=== PATIENT | female | born 1950 | race Caucasian/White ===

== ENCOUNTER 2019-09-27 08:27 | Inpatient (IN) | payer MEDICAID, OTHER ==
[2019-09-27] VITALS (22 sets, daily range): BP systolic 108–155; BP diastolic 45–70
[~2019-09-27] VITALS: Ht 162.6 cm; Wt 77.1 kg
[2019-09-27] MEDS ORDERED: ONDANSETRON HCL 4MG/2ML INJ IV STA (09:10)
[2019-09-27] MEDS ORDERED: MORPHINE SULFATE 4 MG/ML CPJ (NOT FOR IM USE) IV STA (09:10)
[2019-09-27] MEDS ORDERED: SODIUM CHLORIDE 0.9% 1,000 ML IV ONE (09:10)
[2019-09-27 09:44] LABS: BASOPHILS % 0.9 % (0.0-2.0); HEMATOCRIT. 31.9 % (36.0-48.0); HEMOGLOBIN. 11.1 g/dL (12.0-16.0); LYMPHOCYTES % 13.8 % (20.0-50.0); MEAN CORPUSCULAR HEMOGLOBIN 28.3 pg (28.0-32.0); MEAN CORPUSCULAR VOLUME 81.2 fL (81.0-99.0); MEAN PLATELET VOLUME 8.4 fl (7.4-10.4); MONOCYTES % 6.1 % (2.0-8.0); NEUTROPHILS % 70.2 % (40.0-76.0); PLATELET 191 x1000/uL (130-400); RED BLOOD CELL COUNT 3.93 mill/uL (4.2-5.4); RED CELL DISTRIBUTION WIDTH 15.4 % (11.6-14.6)
[2019-09-27 09:50] LABS: CHLORIDE 102 mEq/L (98-107)
[2019-09-27 09:53] LABS: INR 1.2; PARTIAL THROMBOPLASTIN TIME 35.1 sec (23.4-31.0); PROTHROMBIN TIME 12.5 sec (9.6-11.0)
[2019-09-27] MEDS ORDERED: LEVETIRACETAM 500MG PREMIX 100 ML IV ONE (11:30)
[2019-09-27] MEDS ORDERED: LACTATED RINGERS 1,000 ML IV SCH (12:30)
[2019-09-27] MEDS ORDERED: ONDANSETRON HCL 4MG/2ML INJ IV PRN (12:30)
[2019-09-27] MEDS ORDERED: NICARDIPINE 50 MG in SODIUM CHLORIDE 0.9% 230 ML IV PRN (12:30)
[2019-09-27] MEDS ORDERED: LEVETIRACETAM 500 MG in SODIUM CHLORIDE 0.9% 100 ML IV SCH (12:30)
[2019-09-27] MEDS ORDERED: DEXTROSE 50% WATER 50ML SYRINGE IV PRN (12:30)
[2019-09-27] MEDS ORDERED: NICARDIPINE 100 MG in SODIUM CHLORIDE 0.9% 60 ML IV PRN (13:30)
[2019-09-27] MEDS ORDERED: DEXT 5%/LACTATED RINGERS 1,000 ML IV SCH (13:30)
[2019-09-27] MEDS: BLOOD SUGAR DIAGNOSTIC STRIP TEST SCH ×3 (14:00→21:13)
[2019-09-27] MEDS: PANTOPRAZOLE SODIUM 40 MG/VIAL IV SCH (14:10)
[2019-09-27] MEDS: INSULIN LISPRO 100 UNITS/ML SUBCUT SCH ×3 (15:17→21:00)
[2019-09-27] MEDS: NICARDIPINE 100 MG in SODIUM CHLORIDE 0.9% 60 ML IV PRN (15:34)
[2019-09-27] MEDS: MORPHINE SULFATE 2 MG/ML CPJ (NOT FOR IM USE) IV PRN (19:08)
[2019-09-27] MEDS: LEVETIRACETAM 500MG PREMIX 100 ML IV SCH (20:32)
[2019-09-27] MEDS ORDERED: LEVETIRACETAM 500MG PREMIX 100 ML IV SCH (21:00)
[2019-09-28] VITALS (83 sets, daily range): BP systolic 82–160; BP diastolic 24–104
[2019-09-28] MEDS: MORPHINE SULFATE 2 MG/ML CPJ (NOT FOR IM USE) IV PRN ×3 (00:40→17:42)
[2019-09-28 05:58] LABS: CHLORIDE 109 mEq/L (98-107)
[2019-09-28 06:22] LABS: BASOPHILS % 0.5 % (0.0-2.0); EOSINOPHILS % 6.8 % (0.0-5.0); HEMATOCRIT. 32.4 % (36.0-48.0); LYMPHOCYTES % 10.1 % (20.0-50.0); MEAN PLATELET VOLUME 9.1 fl (7.4-10.4); MONOCYTES % 6.9 % (2.0-8.0); NEUTROPHILS % 75.7 % (40.0-76.0); PLATELET 204 x1000/uL (130-400); RED BLOOD CELL COUNT 3.95 mill/uL (4.2-5.4); RED CELL DISTRIBUTION WIDTH 15.6 % (11.6-14.6)
[2019-09-28] MEDS ORDERED: LACTATED RINGERS 1,000 ML IV SCH (08:00)
[2019-09-28] MEDS: BLOOD SUGAR DIAGNOSTIC STRIP TEST SCH ×4 (08:19→20:08)
[2019-09-28] MEDS: PANTOPRAZOLE SODIUM 40 MG/VIAL IV SCH (08:24)
[2019-09-28] MEDS: LEVETIRACETAM 500MG PREMIX 100 ML IV SCH ×2 (08:24→20:13)
[2019-09-28] MEDS: INSULIN LISPRO 100 UNITS/ML SUBCUT SCH ×4 (08:25→20:14)
[2019-09-28] MEDS: NICARDIPINE 100 MG in SODIUM CHLORIDE 0.9% 60 ML IV PRN (08:26)
[2019-09-28] MEDS: HYDROCODONE/ACETAMINOPHEN 5/325MG TABLET PO PRN (20:18)
[2019-09-29] VITALS (70 sets, daily range): BP systolic 84–190; BP diastolic 47–85
[2019-09-29] MEDS: HYDROCODONE/ACETAMINOPHEN 5/325MG TABLET PO PRN ×4 (03:30→20:39)
[2019-09-29] MEDS: BLOOD SUGAR DIAGNOSTIC STRIP TEST SCH ×4 (07:30→20:40)
[2019-09-29] MEDS: PANTOPRAZOLE SODIUM 40 MG/VIAL IV SCH (08:54)
[2019-09-29] MEDS: LEVETIRACETAM 500MG PREMIX 100 ML IV SCH ×2 (08:54→20:40)
[2019-09-29] MEDS: MORPHINE SULFATE 2 MG/ML CPJ (NOT FOR IM USE) IV PRN ×3 (08:54→19:46)
[2019-09-29] MEDS: INSULIN LISPRO 100 UNITS/ML SUBCUT SCH ×4 (09:16→20:57)
[2019-09-29] MEDS: LOSARTAN POTASSIUM 50 MG TABLET PO SCH (10:43)
[2019-09-29] MEDS: AMLODIPINE 5MG TABLET PO SCH ×2 (10:43→20:40)
[2019-09-29] MEDS ORDERED: AMLO5TAB88 PO (11:21)
[2019-09-29] MEDS ORDERED: LOSA50TA3 PO (11:21)
[2019-09-29] MEDS ORDERED: HYDR-4001 PO (11:21)
[2019-09-29] MEDS ORDERED: INSULIN GLARGINE UD 100 UNITS/ML SYR SUBCUT NR (12:00)
[2019-09-29] MEDS ORDERED: KEPP500 MT (12:03)
[2019-09-29 14:29] LABS: CLARITY URINE CLOUDY (CLEAR); COLOR URINE YELLOW (YELLOW); KETONES URINE NEGATIVE (NEGATIVE); LEUKOCYTE ESTERASE URINE 1+ (NEGATIVE); NITRITE URINE NEGATIVE (NEGATIVE); OCCULT BLOOD URINE TRACE (NEGATIVE); PROTEIN URINE TRACE (NEGATIVE); SPECIFIC GRAVITY URINE 1.016 (1.005-1.030)
[2019-09-29] MEDS ORDERED: LOSA100T32 MT (14:51)
[2019-09-29] MEDS ORDERED: LOSARTAN POTASSIUM 50 MG TABLET PO NR (15:00)
[2019-09-29] MEDS ORDERED: CEFTRIAXONE 1 G PREMIX 50 ML IV SCH (18:30)
[2019-09-29] MEDS: DIPHENHYDRAMINE 25MG CAPSULE PO PRN (19:44)
[2019-09-29] MEDS ORDERED: CLONIDINE 0.1MG TABLET PO PRN (22:30)
[2019-09-30] VITALS: BP 142/58
[2019-09-30] MEDS: MORPHINE SULFATE 2 MG/ML CPJ (NOT FOR IM USE) IV PRN (01:22)
[2019-09-30 04:00] VITALS: BP 132/44
[2019-09-30] MEDS: BLOOD SUGAR DIAGNOSTIC STRIP TEST SCH ×2 (07:03→12:28)
[2019-09-30 08:00] VITALS: BP 164/47
[2019-09-30] MEDS: INSULIN LISPRO 100 UNITS/ML SUBCUT SCH ×2 (08:43→13:19)
[2019-09-30] MEDS: PANTOPRAZOLE SODIUM 40 MG/VIAL IV SCH (08:43)
[2019-09-30] MEDS: LOSARTAN POTASSIUM 50 MG TABLET PO SCH (08:44)
[2019-09-30] MEDS: AMLODIPINE 5MG TABLET PO SCH (08:44)
[2019-09-30] MEDS ORDERED: INSULIN GLARGINE UD 100 UNITS/ML SYR SUBCUT SCH (10:00)
[2019-09-30] MEDS: DIPHENHYDRAMINE 25MG CAPSULE PO PRN (10:54)
[2019-09-30] MEDS: HYDROCODONE/ACETAMINOPHEN 5/325MG TABLET PO PRN ×2 (10:55→16:17)
[2019-09-30] MEDS ORDERED: LOSARTAN POTASSIUM 50 MG TABLET PO NR (11:30)
[2019-09-30] MEDS: LEVETIRACETAM 500MG PREMIX 100 ML IV SCH (12:32)
[2019-09-30] MEDS ORDERED: INSULIN LISPRO 100 UNITS/ML SUBCUT NR (12:45)
[2019-09-30 15:21] VITALS: BP 153/56
[2019-09-30 16:17] VITALS: BP 157/47
== END 2019-09-30 17:18 | disposition home or self-care (01) | DRG 55 ==
LOC: ER 08:27 → EDBEDREQTM 10:41 → 5EST 11:32 → EDBEDREQ 11:50 → EDBEDREQTM 11:50 → EDBEDREQSVC 11:50 → ENRESERV 14:18 → CANRESERV 14:18 → ENRESERV 16:50 → 6EST 09-29 22:10
PROVIDERS: ADMIT Internal Medicine; ATTEND Internal Medicine
DX: S06.6X0A Traumatic subarachnoid hemorrhage without loss of consciousness, initial encounter (principal); I11.9 Hypertensive heart disease without heart failure; G90.8 Other disorders of autonomic nervous system; D64.9 Anemia, unspecified; E78.5 Hyperlipidemia, unspecified; E11.9 Type 2 diabetes mellitus without complications; E78.00 Pure hypercholesterolemia, unspecified; I25.10 Atherosclerotic heart disease of native coronary artery without angina pectoris; W18.39XA Other fall on same level, initial encounter; N39.0 Urinary tract infection, site not specified; Z92.3 Personal history of irradiation; Z85.3 Personal history of malignant neoplasm of breast; Y93.89 Activity, other specified; Y92.89 Other specified places as the place of occurrence of the external cause; Y99.8 Other external cause status
CPT/HCPCS: 36415; 71045; 80048; 80053; 81003; 82962; 83880; 84484; 85025; 93005; 93306; 93880; 93970; 97116; 97162; 97166; 97530; 97535; 99285; C9113; J0696; J1815; J1953; J2270; J2405; J3490; J7030; J7050; J7120; Q0163